=== PATIENT | male | born 1980 | race African-American/Black ===

== ENCOUNTER 2023-12-01 11:01 | Inpatient (IN) | payer MEDICARE, MEDICAID ==
[~2023-12-01] VITALS: Ht 195.6 cm; Wt 109.9 kg
[2023-12-01 11:50] LABS: Basophils # (auto) 0.1 10 ^3/uL (0-0.2); Eosinophils # (auto) 0.3 10 ^3/uL (0-0.8); Eosinophils % (auto) 4.6 % (0.0-7.0); Hemoglobin 13.8 g/dL (13.5-17.5); Lymphocytes # (auto) 3.4 10 ^3/uL (0.4-5.4); Lymphocytes % (auto) 51.5 % (10.0-50.0); Mean Corpuscular Hemoglobin 29.6 pg (28.0-32.0); Mean Corpuscular Hgb Conc. 33.6 g/dL (32.0-36.0); Mean Corpuscular Volume 88.1 fL (80.0-100.0); Monocytes # (auto) 0.7 10 ^3/uL (0-1.3); Monocytes % (auto) 10.7 % (0.0-12.0); Neutrophils # (auto) 2.1 10 ^3/uL (1.6-8.6); Neutrophils % (auto) 31.2 % (37.0-80.0); Red Blood Cells 4.65 10^6/uL (4.5-5.90); Red Cell Distribution Width 14.1 % (11.8-14.3); White Blood Cell 6.6 10^3/uL (4.4-10.8)
[2023-12-01 12:07] LABS: Alanine Aminotransferase 24 U/L (7-40); Albumin 4.3 g/dL (3.2-4.8); Alkaline Phosphatase 93 U/L (46-116); Anion Gap 3 (5-15); Aspartate Aminotransferase 25 U/L (13-40); BUN/Creatinine Ratio 10.6 (10.0-20.0); Blood Urea Nitrogen 12 mg/dL (9-23); Calcium 9.4 mg/dL (8.5-10.1); Carbon Dioxide 29 mmol/L (20-30); Chloride 108 mmol/L (98-107); Glucose 94 mg/dL (74-106); Potassium 3.9 mmol/L (3.5-5.1); Sodium 140 mmol/L (136-145)
[2023-12-01 12:08] LABS: Bilirubin, Total 0.5 mg/dL (0.2-1.0)
[2023-12-01] MEDS: NITROGLYCERIN 0.4 MG SL TAB SL ONE (13:15)
[2023-12-01] MEDS: ASPirin 325 MG TAB PO ONE (13:17)
[2023-12-01 13:21] VITALS: PULSE 59; RESP 20; O2SAT 95
[2023-12-01] MEDS ORDERED: ONDANSETRON HCL 4 MG/2 ML VIAL IV PRN (14:30)
[2023-12-01] MEDS ORDERED: MORPHINE SULFATE INJ 2 MG/ml SYRG IV PRN ×2 (14:30)
[2023-12-01] MEDS ORDERED: ACETAMINOPHEN 325 MG TAB PO PRN (14:30)
[2023-12-01] MEDS ORDERED: DOCUSATE SOD 100 MG CAP PO PRN (14:30)
[2023-12-01] MEDS ORDERED: HYDROcodone-ACET 5/325MG TAB PO PRN (14:30)
[2023-12-01] MEDS ORDERED: NITROGLYCERIN 0.4 MG SL TAB SL PRN (14:30)
[2023-12-01] MEDS ORDERED: ALPR0.5T7 PO (15:21)
[2023-12-01] MEDS ORDERED: QUET300T74 PO (15:21)
[2023-12-01] MEDS ORDERED: TRAZ-227 PO (15:21)
[2023-12-01] MEDS ORDERED: SERT-206 PO (15:21)
[2023-12-01 16:27] VITALS: BP 114/73; PULSE 65; RESP 16
[2023-12-01 17:09] VITALS: BP 114/73; PULSE 60; RESP 17; TEMP 98; O2SAT 98
[2023-12-01 19:54] VITALS: PULSE 65; RESP 18; O2SAT 96
[2023-12-01 20:00] VITALS: PULSE 65
[2023-12-01 22:00] VITALS: BP 96/49; PULSE 67; RESP 17; TEMP 98.8; O2SAT 100
[2023-12-01] MEDS: QUEtiapine FUMARATE 100 MG TAB PO SCH (22:30)
[2023-12-01] MEDS: ATORVASTATIN 20 MG TAB PO SCH (22:30)
[2023-12-01] MEDS: traZODone HCL 50 MG TAB PO SCH (23:02)
[2023-12-02] VITALS (10 sets, daily range): BP systolic 96–119; BP diastolic 38–89; PULSE 63–77; RESP 13–18; TEMP 97.6–98.6; O2SAT 96–100
[2023-12-02 06:50] LABS: Basophils # (auto) 0.1 10 ^3/uL (0-0.2); Basophils % (auto) 1.4 % (0.0-2.0); Eosinophils # (auto) 0.5 10 ^3/uL (0-0.8); Eosinophils % (auto) 7.7 % (0.0-7.0); Hematocrit 41.2 % (41.0-53.0); Hemoglobin 13.8 g/dL (13.5-17.5); Lymphocytes # (auto) 3.1 10 ^3/uL (0.4-5.4); Lymphocytes % (auto) 51.4 % (10.0-50.0); Mean Corpuscular Hemoglobin 29.6 pg (28.0-32.0); Mean Corpuscular Hgb Conc. 33.6 g/dL (32.0-36.0); Mean Corpuscular Volume 88.2 fL (80.0-100.0); Monocytes # (auto) 0.6 10 ^3/uL (0-1.3); Monocytes % (auto) 9.4 % (0.0-12.0); Neutrophils # (auto) 1.8 10 ^3/uL (1.6-8.6); Neutrophils % (auto) 30.1 % (37.0-80.0); Nucleated Red Blood Cells % 0.2 %; Red Blood Cells 4.67 10^6/uL (4.5-5.90); Red Cell Distribution Width 13.8 % (11.8-14.3)
[2023-12-02 07:06] LABS: INR 0.97 (0.9-1.15); Partial Thromboplastin Time 31.5 SEC (24.5-34.5); Prothrombin Time 10.3 sec (9.3-11.8)
[2023-12-02 07:27] LABS: Alanine Aminotransferase 30 U/L (7-40); Albumin 4.1 g/dL (3.2-4.8); Alkaline Phosphatase 91 U/L (46-116); Anion Gap 6 (5-15); Aspartate Aminotransferase 27 U/L (13-40); BUN/Creatinine Ratio 12.3 (10.0-20.0); Blood Urea Nitrogen 13 mg/dL (9-23); Calcium 9.1 mg/dL (8.5-10.1); Carbon Dioxide 25 mmol/L (20-30); Chloride 109 mmol/L (98-107); Cholesterol 222 mg/dL (< 200); Glucose 93 mg/dL (74-106); HDL Cholesterol 34 mg/dL (40-59); LDL Cholesterol 128 mg/dL (< 100); Potassium 4.1 mmol/L (3.5-5.1); Sodium 140 mmol/L (136-145); Triglycerides 309 mg/dL (< 150)
[2023-12-02 07:28] LABS: Bilirubin, Total 0.4 mg/dL (0.2-1.0); Total Protein 6.7 g/dL (5.7-8.2)
[2023-12-02] MEDS: PANTOPRAZOLE 40 MG TAB PO SCH (09:06)
[2023-12-02] MEDS: ALPRAZolam 0.5 MG TAB PO PRN (09:06)
[2023-12-02] MEDS: SERTRALINE HCL 50 MG TAB PO SCH (09:06)
[2023-12-02] MEDS: ENOXAPARIN SOD 40 MG/0.4 ML SYRINGE SC SCH (09:07)
[2023-12-02] MEDS: ASPirin-EC 81 mg tab PO SCH (09:07)
[2023-12-02] MEDS: HEPARIN SODIUM (PORCINE) 5000 UNITS/ML 1ML VIAL ONE (12:41)
[2023-12-02] MEDS: MIDAZOLAM HCL 2MG/2ML 2ml VIAL (1mg/ml) ONE (12:42)
[2023-12-02] MEDS: IODIXANOL 320MG/ML 100ML BTL IV ONE (12:42)
[2023-12-02] MEDS: VERAPAMIL 2.5MG/ML INJ 2ML VIAL IV ONE (12:42)
[2023-12-02] MEDS: fentaNYL CITRATE 100 MCG/2 ML VL ONE (12:42)
[2023-12-02] MEDS: ANGIOMAX 250 MG VIAL IV ONE (12:47)
[2023-12-02] MEDS: SODIUM CHL 0.9% 50 ML ONE (12:47)
[2023-12-02] MEDS: LIDOCAINE 2%HCL (LOCAL ANESTH.) INJ 20ML MDV ONE (12:50)
== END 2023-12-02 18:15 | disposition home or self-care (01) | DRG 287 ==
LOC: ER 11:01 → TELE 14:27 → TELE-WESTW 16:17
PROVIDERS: ADMIT Nurse Practitioner Family; ATTEND Nurse Practitioner Family
PROC: B211YZZ Fluoroscopy of Multiple Coronary Arteries using Other Contrast (ICD-10-PCS; principal; 2023-12-02)
PROC: 4A023N7 Measurement of Cardiac Sampling and Pressure, Left Heart, Percutaneous Approach (ICD-10-PCS; 2023-12-02)
PROC: B215YZZ Fluoroscopy of Left Heart using Other Contrast (ICD-10-PCS; 2023-12-02)
DX: I20.81 Angina pectoris with coronary microvascular dysfunction (principal); E78.5 Hyperlipidemia, unspecified; F41.9 Anxiety disorder, unspecified; E03.9 Hypothyroidism, unspecified; G62.9 Polyneuropathy, unspecified; I34.0 Nonrheumatic mitral (valve) insufficiency; N62 Hypertrophy of breast; F17.210 Nicotine dependence, cigarettes, uncomplicated; Z86.73 Personal history of transient ischemic attack (TIA), and cerebral infarction without residual deficits; Z95.0 Presence of cardiac pacemaker; Z79.82 Long term (current) use of aspirin; Z82.49 Family history of ischemic heart disease and other diseases of the circulatory system
CPT/HCPCS: 36415; 71045; 80053; 80061; 83036; 83735; 83880; 84443; 84484; 85025; 85379; 85610; 85730; 93005; 93306; 93458; 99152; G0378; J2250; Q9967

== ENCOUNTER 2024-06-21 09:27 | Emergency (ER) | payer MEDICARE, MEDICAID ==
[~2024-06-21] VITALS: Ht 195.6 cm; Wt 103.8 kg
[~2024-06-21 09:27] MED LIST: ALPR0.5T7 PO; QUET300T74 PO; SERT-206 PO; TRAZ-227 PO
[2024-06-21 09:53] VITALS: BP 130/90; PULSE 100; RESP 16; TEMP 98.9; O2SAT 100
--- NOTE | 2024-06-21 10:01 | ED.PDOC ---
Eye-HPI HPI Comments Presents for a tib fracture x 4 weeks Also bilateral ear infection x Tried OTC medicine with no improvement Chief Complaint: Earache Time Seen by MD: 09:42 Primary Care Provider: ROSALINDA Reviewed Notes: Nurses Notes, Medications, Allergies Allergies: Coded Allergies: NO KNOWN ALLERGIES (Unverified , 12/01/23) Home Meds Reported Medications Quetiapine Fumarate (Quetiapine Fumarate ER) 300 Mg Tab, 1 TAB PO 12/01/23 Sertraline Hcl (Sertraline Hcl) 50 Mg Tab, 1 TAB PO DAILY 12/01/23 Trazodone Hcl (Trazodone Hcl) 50 Mg Tab, 1 TAB PO 12/01/23 Alprazolam (Alprazolam) 0.5 Mg Tab, 1 TAB PO DAILYPRN PRN 12/01/23 Information Source: Patient Mode of Arrival: Ambulatory All Other Systems: Reviewed and Negative (Per HPI) Physical Exam General Appearance: No Apparent Distress, Normal HEENT: Normal ENT Inspection, Pharynx Normal, TM Abnormal (L), TM Abnormal (R), Other (Bilateral TMs are intact but erythematous and bulging) Neck: Full Range of Motion, Non-Tender, Normal, Normal Inspection Respiratory: Chest Non-Tender, Lungs Clear, No Accessory Muscle Use, No Respiratory Distress, Normal Breath Sounds Cardiovascular: No Edema, No JVD, No Murmur, No Gallop, Normal Peripheral Pulses, Regular Rate/Rhythm Breast Exam: Deferred Gastrointestinal: No Organomegaly, Non Tender, No Pulsatile Mass, Normal Bowel Sounds, Soft Genitalia: Deferred Pelvic: Deferred Rectal: Deferred Extremities: No calf tenderness, Normal capillary refill, Normal inspection, Normal range of motion, Non-tender, No pedal edema Musculoskeletal : Apperance: Normal Neurologic: Alert, senior care specialist II-XII nml as Tested, No Motor Deficits, Normal Affect, Normal Mood, No Sensory Deficits Cerebellar Function: Normal Reflexes: Normal Skin: Dry, Normal Color, Warm Lymphatic: No Adenopathy Was a procedure done? Was a procedure done?: No EENT DIFF Eye: Other X-Ray, Labs, Meds, VS Vital Signs Date Time Temp Pulse Resp B/P (MAP) Pulse Ox O2 Delivery O2 Flow Rate FiO2 06/21/24 09:53 100 16 100 Room Air 06/21/24 09:53 98.9 100 16 130/90 (103) 100 98.9 06/21/24 09:30 98.8 106 20 134/93 (107) 100 X-Ray, Labs, Meds, VS Comment Prescribed p.o. antibiotics for presentation of symptoms Complete course of antibiotic therapy even if symptoms improve or resolve. There should be no leftover antibiotics as this can lead to antibiotic resistant bacteria and even worse infection. Potential side effects discussed with patient including abdominal pain, nausea, diarrhea. Patient is stable for discharge at this time. External notes reviewed. Test results and diagnostic imaging interpreted. All diagnostic findings, discharge care, education and instructions provided Follow-up with PCP in 2 to 3 days Patient verbalized understanding and agreed to treatment plan Vital signs stable, afebrile, no acute distress noted Patient ambulatory with strong steady gait Advised to return precautions for any new or worsening symptoms, return to ER immediately for re-evaluation Patient is aware that the purpose of this visit was for an acute medical emergency requiring emergent stabilization. Chronic conditions, including malignancies have not been ruled out. Patient is instructed to follow up with PCP as directed and discharge instructions for continued care and workup. If unable to arrange follow-up, patient is to return to the emergency department for reassessment. Patient (parent or legal guardian if applicable) was given verbal and written discharge instructions and acknowledges understanding. Time of 1ST Reevaluation: 10:59 Reevaluation 1ST: Improved Patient Education/Counseling: Diagnosis, Treatment Family Education/Counseling: Diagnosis, Treatment Departure 1 Departure Time of Disposition: 10:59 Impression: Primary Impression: Otitis media Qualified Codes: H66.003 - Acute suppurative otitis media without spon taneous rupture of ear drum, bilateral Disposition: 01 HOME / SELF CARE / HOMELESS Condition: Stable e-Prescriptions Ibuprofen Micronized (Ibuprofen) 800 Mg Tab 800 MG PO TID for 10 Days, #30 TAB 0 Refills Prov: PARAM MORALES NP 06/21/24 Amoxicillin & Pot Clavulanate (AUGMENTIN TABLET) 875 Mg Tb 875 MG PO BID for 7 Days, #14 TAB 0 Refills Prov: PARAM MORALES BINDER OPERATOR 06/21/24 Critical Care Note Critical Care Time?: No Stability Stability form required: No Heart Score Heart Score: Heart Score Response (Comments) Value History N/A 0 EKG N/A 0 Age N/A 0 Risk Factors N/A 0 Troponin N/A 0 Total 0 PARAM MORALES BINDER OPERATOR Jun 21, 2024 10:01
--- NOTE | 2024-06-21 10:43 | DVH ---
PROCEDURE: Left tibia/ fibula radiographs. INDICATION: Fracture TECHNIQUE: Frontal and lateral views of the left tibia/ fibula were obtained. COMPARISON: No prior imaging of the left tibia / fibula is available at the time of this interpretati on. FINDINGS: There is no evidence of fracture or dislocation. Vertical lucency in the proximal tibia is consistent with vascular groove. Joint spaces are maintained. The soft tissues are unremarkable. IMPRESSION: 1. No fracture or dislocation.
[2024-06-21] MEDS ORDERED: AUG875T PO (11:00)
[2024-06-21] MEDS ORDERED: IBUP-1455 PO (11:00)
== END 2024-06-21 11:10 | disposition home or self-care (01) ==
LOC: ER 09:27
DX: H66.93 Otitis media, unspecified, bilateral (principal); Z79.899 Other long term (current) drug therapy
CPT/HCPCS: 73590